=== PATIENT | female | born 1940 | race Caucasian/White ===

== ENCOUNTER 2017-08-05 07:29 | Day surgery (SDC) | payer OTHER ==
[2017-08-05] MEDS ORDERED: MYDRIACIL OPHTH 1 DOSE AFFEYE ONE ×3 (07:42→07:44)
[2017-08-05] MEDS ORDERED: AK-DILATE 2.5% OPHTH 1 DOSE AFFEYE ONE (07:42)
[2017-08-05] MEDS ORDERED: TETRACAINE 0.5% OPHTH 1 DOSE AFFEYE ONE ×2 (07:42→08:05)
[2017-08-05] MEDS ORDERED: AK-DILATE 2.5% OPHTH 1 DOSE OP ONE ×2 (07:43→07:44)
[2017-08-05 11:21] VITALS: BP 156/73
== END 2017-08-05 08:20 | disposition home or self-care (01) ==
LOC: SURG1 07:29
PROVIDERS: ATTEND Ophthalmology
PROC: 085E3ZZ Destruction of Right Retina, Percutaneous Approach (ICD-10-PCS; principal; 2017-08-05 08:00)
DX: E11.311 Type 2 diabetes mellitus with unspecified diabetic retinopathy with macular edema (principal)